=== PATIENT | female | born 1955 | race Caucasian/White ===

== ENCOUNTER 2019-01-08 01:00 | Inpatient (IN) ==
[2018-12-29 15:43] LABS: BASO# 0.09 X1000 (0.0-0.2); EOS# 0.19 X1000 (0.0-0.7); EOS% 2.2 % (0.0-10.0); HEMATOCRIT 39.8 % (37.0-47.0); HEMOGLOBIN 12.6 g/dL (12.0-16.0); IMM GRAN# 0.03 X1000 (0.0-0.04); IMM GRAN% 0.3 % (0.0-0.5); LYMPH# 3.28 X1000 (1.2-3.4); LYMPH% 37.2 % (20.5-51.1); MCH 30.4 PG (27-31); MCHC 31.7 g/dL (33-37); MCV 96.1 FL (81-99); MONO# 0.77 X1000 (0.11-0.59); MONO% 8.7 % (1.7-9.3); MPV 11.2 FL (7.4-10.4); NEUT# 4.45 X1000 (1.4-6.5); NEUT% 50.6 % (42.2-75.2); PLT 284 X1000 (130-400); RBC 4.14 XMIL (4.2-5.4); WBC 8.81 X1000 (4.8-10.8)
--- NOTE | 2018-12-29 15:50 | EKG Report ---
Test Performed on : 12/29/2018 3:25:39 PM Test Reason : PAT Blood Pressure : / mmHG Vent. Rate : 073 BPM Atrial Rate : 073 BPM P-R Int : 118 ms QRS Dur : 170 ms QT Int : 444 ms P-R-T Axes : 067 -65 098 degrees QTc Int : 489 ms Suspect unspecified pacemaker failure Atrial-sensed ventricular-paced rhythm Abnormal ECG No previous ECGs available Confirmed by Delmy CAZARES, Flakito ([id number]) on 12/29/2018 5:32:28 PM
[2018-12-29 15:58] LABS: AGAP 11; BUN 27 mg/dL (8-22); CALCIUM 10.9 mg/dL (8.8-10.2); CHLORIDE 102 mmol/L (98-107); COSMO 287; CREATININE 1.6 mg/dL (0.5-0.9); GLUCOSE 112 mg/dL (70-104); POTASSIUM 4.4 mmol/L (3.5-5.1); SODIUM 141 mmol/L (136-145); TCO2 28 mmol/L (25-35)
[2019-01-08] MEDS ORDERED: LR 500 ML ONE (05:41)
[2019-01-08] MEDS ORDERED: KEFZOL 2 GM/D5W 2 GM/50 ML IVPB ONE (05:42)
[2019-01-08] MEDS ORDERED: FENTANYL ONE ×2 (06:22→09:40)
[2019-01-08] MEDS ORDERED: XYLOCAINE-MPF 2% ONE (06:22)
[2019-01-08] MEDS ORDERED: VERSED ONE (06:22)
[2019-01-08] MEDS ORDERED: DIPRIVAN 1% ONE (06:22)
[2019-01-08] MEDS ORDERED: QUELICIN (DOSE) ONE (06:42)
[2019-01-08] MEDS ORDERED: ZOFRAN ONE (07:47)
[2019-01-08] MEDS ORDERED: DECADRON ONE (07:47)
[2019-01-08] MEDS ORDERED: OFIRMEV 1000 MG/ISOTONIC SOLN 1,000 MG/100 ML BOTTLE ONE (08:29)
[2019-01-08] MEDS ORDERED: EPHEDRINE ONE (09:06)
[2019-01-08] MEDS ORDERED: ROBINUL ONE (09:29)
[2019-01-08] MEDS ORDERED: NEOSTIGMINE ONE (09:29)
[2019-01-08] MEDS ORDERED: DILAUDID IV PRN (09:50)
[2019-01-08] MEDS: DILAUDID ONE ×2 (10:08→10:18)
--- NOTE | 2019-01-08 10:20 | OPERATIVE NOTE ---
PROCEDURE DATE: 01/08/2019 PREOPERATIVE DIAGNOSES: 1. Left calcaneal fracture. 2. Left Charcot hindfoot with subtalar collapse. POSTOPERATIVE DIAGNOSES: 1. Left calcaneal fracture. 2. Left Charcot hindfoot with subtalar collapse. PROCEDURES: 1. Left bone graft major from the femur. 2. Left open reduction and internal fixation calcaneus. 3. Left distraction subtalar fusion. SURGEON: Dr. Jc Olvera. INDUSTRIAL MACHINE OPERATOR: JENNIFER Marques, who was an integral part of the case, helping with all aspects of the case, and helping to increase our OR efficiency greatly. ANESTHESIA: General with LMA. TOURNIQUET TIME: Just over an hour. ESTIMATED BLOOD LOSS: 100 mL. IMPLANTS: 1. [employer] tricortical allograft wedge. 2. [employer] fully threaded headless screws. DISPOSITION: To PACU hemodynamically stable. INDICATION FOR PROCEDURES: Ms. Martinez is a 63-year-old female who suffered a calcaneus fracture. Unfortunately, it went onto a lot of collapse and the talus was almost sitting at the inferior border of the calcaneus. She was gapping at the TN joint as well so I discussed with her about surgical intervention. She expressed understanding, and wished to proceed. DESCRIPTION OF PROCEDURE: Ms. Martinez was identified in the preoperative holding area. The left foot was marked as correct surgical site. She was then wheeled to the operating room, and placed supine on the operating table. All bony prominences were well padded. She was induced under general anesthesia. LMA was placed. The left lower extremity then prepped with chlorhexidine, gluconate scrub and then ChloraPrep, and draped in normal sterile fashion. Surgical pause was performed. We identified the correct patient, correct side, and the correct procedure. Preop antibiotics were given. I made an incision just proximal to the greater trochanter. Dissection was carried down. I got my guidewire in good position. Her body habitus was such that it was difficult to get that starting position, but we were actually able to have really good position. I then used the over drill over that proximal femur. Once I guided it, then I passed a ball- tipped guidewire down to the knee. After that was confirmed to be in bone, we then used the [employer] TREVOR system, I got it in and then reamed the femoral canal. We got about 40 mL of graft. I then removed a ball-tip guidewire. I closed that in layered fashion, 0 Vicryl for the deep layer, 2-0 Vicryl for the subcutaneous, and kevin on the skin. After this, we used a sterile tourniquet. Esmarch was used to exsanguinate the left lower extremity and tourniquet inflated to 300 mmHg. I then made more of a vertical type incision over the sinus tarsi area. Dissection was carried down. We identified our peroneal tendons, and protecting them throughout the case. I opened up the subtalar joint. She had a lot of collapse of that calcaneus. There was a huge space there. I ended up cleaning out a lot of the bone and fibrous tissue that was there using a curette and rongeurs. I then denuded all of the cartilage that was left off the talus and the calcaneus using the osteotome, rongeur and curette. I then drilled the under surface of the talus, and drilled the intermediary fragment which was the posterior facet of the calcaneus. Then, I drilled the bottom of that piece and the calcar tuberosity. Once I felt that everything was prepared very well, I then used a tricortical iliac crest graft. We soaked it in the bone graft for awhile so that it could soak up a lot of the growth factors. I then covered it with some of the bone graft. I then wedged it in there. That actually restored our height, actually really well. I then packed the bone graft all around that whole area. I packed it in really well. Lateral fluoroscopic imaging showed that we had the height of the talus back to the top of the calcaneus as evidenced by looking at the posterior aspect of the calcaneus. Our TN joint really was not gapping anymore at this point. I then put 2 guidewires up off axis, and then passed the fully threaded screw up to hold everything in place. Putting the screws up, completed our ORIF of the calcaneus, and restored our fairly normal-appearing anatomy. Also, I went across the subtalar joint and fused it in with all of our bone graft. Fluoroscopic imaging showed that we had good position of our screws both lateral, AP and Kumar heel views. We then closed everything in layered fashion, 0 Vicryl for the deep layer, 2-0 Vicryl for the subcutaneous and nylon on the skin. Adaptic, 4x4s, ABD, soft roll, and posterior splint was applied. Tourniquet was let down. Patient had good capillary refill return to the toes. She was then wheeled from general anesthesia, moved to her own bed and taken to the PACU in stable condition. PLAN: Postoperative Diagnosis, she will be nonweightbearing left lower extremity. She will be admitted to the hospital. I will see her in the morning. cc: Jc Olvera MD MTDD
[2019-01-08 11:20] LABS: BASO# 0.04 X1000 (0.0-0.2); BASO% 0.4 % (0.0-0.8); EOS# 0.06 X1000 (0.0-0.7); EOS% 0.6 % (0.0-10.0); HEMATOCRIT 38.2 % (37.0-47.0); HEMOGLOBIN 12.4 g/dL (12.0-16.0); LYMPH# 1.36 X1000 (1.2-3.4); LYMPH% 14.7 % (20.5-51.1); MCH 31.4 PG (27-31); MCHC 32.5 g/dL (33-37); MCV 96.7 FL (81-99); MONO# 0.27 X1000 (0.11-0.59); MONO% 2.9 % (1.7-9.3); MPV 11.5 FL (7.4-10.4); NEUT# 7.55 X1000 (1.4-6.5); NEUT% 81.4 % (42.2-75.2); PLT 190 X1000 (130-400); RBC 3.95 XMIL (4.2-5.4); RDW 14.5 % (11.5-14.5); WBC 9.28 X1000 (4.8-10.8)
[2019-01-08 11:39] LABS: HEMOGLOBIN A1C 6.1 % (4.8-6.0)
[2019-01-08 11:41] LABS: CALCIUM 9.4 mg/dL (8.8-10.2); CREATININE 1.7 mg/dL (0.5-0.9); POTASSIUM 4.6 mmol/L (3.5-5.1)
[2019-01-08] MEDS: OXY IR PO PRN ×4 (11:44→23:10)
[2019-01-08] MEDS ORDERED: KEFZOL 1 GM/D5W 1 GM/50 ML IVPB IV SCH (15:30)
[2019-01-08] MEDS: KEFZOL 1 GM/D5W 1 GM/50 ML IVPB IV SCH (16:47)
[2019-01-08] MEDS ORDERED: SENOKOT PO PRN (16:55)
[2019-01-08] MEDS ORDERED: NON-FORMULARY MED (Dulaglutide [Trulicity] 0.75 MG) SQ SCH (17:00)
[2019-01-08] MEDS ORDERED: ZOFRAN IV PRN ×2 (17:15→18:15)
[2019-01-08] MEDS ORDERED: MORPHINE IV PRN (17:15)
[2019-01-08] MEDS ORDERED: OXY IR PO PRN (17:15)
[2019-01-08] MEDS ORDERED: TOFACITINIB CITRATE 11 MG PO SCH (21:00)
[2019-01-08] MEDS ORDERED: INSULIN PEN NEEDLES ONE (22:56)
[2019-01-08] MEDS: PERIDEX MT SCH (23:07)
[2019-01-08] MEDS: ZYLOPRIM PO SCH (23:08)
[2019-01-08] MEDS: TYLENOL ARTHRITIS PO SCH (23:08)
[2019-01-08] MEDS: COLACE PO SCH (23:09)
[2019-01-08] MEDS: KLOR-CON PO SCH (23:09)
[2019-01-08] MEDS: LOPRESSOR PO SCH (23:10)
[2019-01-08] MEDS: TRESIBA FLEXTOUCH U-100 SUBQ SCH (23:13)
[2019-01-09] MEDS: KEFZOL 1 GM/D5W 1 GM/50 ML IVPB IV SCH ×2 (00:50→09:33)
[2019-01-09] MEDS: TRESIBA FLEXTOUCH U-100 SUBQ SCH ×2 (01:04→22:53)
[2019-01-09] MEDS: OXY IR PO PRN ×5 (03:42→22:51)
[2019-01-09] MEDS: LOVENOX SUBQ SCH ×2 (04:58→09:37)
[2019-01-09] MEDS ORDERED: [UNRECOGNIZED DRUG - OTHER] PO SCH (09:00)
--- NOTE | 2019-01-09 09:10 | PROGRESS NOTE ---
DATE: 01/09/2019 SUBJECTIVE: Ms. Martinez is sitting on the bedside today. Actually she is feeling pretty well overall. OBJECTIVE: Left lower extremity exam, splint is clean, dry, and intact. She is moving her toes well. She has good capillary refill to all the toes. Hip dressing is clean, dry, and intact. ASSESSMENT: Status post left hindfoot Charcot reconstruction with distraction, subtalar fusion and bone graft from the femur. PLAN: Ms. Martinez is strict nonweightbearing to the left lower extremity. I did go over that with her. I think everything is actually looking really good. She is going to be in house over the weekend. We will plan on rehab hopefully on Saturday. [employer] is already getting started on everything, and we will follow her through the weekend. cc: Jc Olvera MD
[2019-01-09] MEDS: ZYRTEC PO SCH (09:33)
[2019-01-09] MEDS: DEMADEX PO SCH (09:33)
[2019-01-09] MEDS: ZYLOPRIM PO SCH ×2 (09:34→22:55)
[2019-01-09] MEDS: KLOR-CON PO SCH ×2 (09:34→22:54)
[2019-01-09] MEDS: CENTRUM SILVER PO SCH (09:35)
[2019-01-09] MEDS: ASPIRIN PO SCH (09:35)
[2019-01-09] MEDS: VITAMIN D PO SCH (09:35)
[2019-01-09] MEDS: COLACE PO SCH ×2 (09:35→22:54)
[2019-01-09] MEDS: PERIDEX MT SCH ×2 (09:36→22:54)
[2019-01-09] MEDS: TYLENOL ARTHRITIS PO SCH ×2 (09:36→22:53)
[2019-01-09] MEDS: LOPRESSOR PO SCH (22:55)
[2019-01-09] MEDS: LYRICA PO SCH (22:59)
[2019-01-10] MEDS: OXY IR PO PRN ×4 (05:06→16:12)
[2019-01-10] MEDS: LOVENOX SUBQ SCH (05:06)
[2019-01-10] MEDS: ZYLOPRIM PO SCH ×2 (08:37→21:20)
[2019-01-10] MEDS: COLACE PO SCH ×2 (08:37→21:19)
[2019-01-10] MEDS: PERIDEX MT SCH ×2 (08:37→21:19)
[2019-01-10] MEDS: KLOR-CON PO SCH ×2 (08:37→21:22)
[2019-01-10] MEDS: ZYRTEC PO SCH (08:38)
[2019-01-10] MEDS: ASPIRIN PO SCH (08:38)
[2019-01-10] MEDS: VITAMIN D PO SCH (08:38)
[2019-01-10] MEDS: CENTRUM SILVER PO SCH (08:38)
[2019-01-10] MEDS: TYLENOL ARTHRITIS PO SCH ×2 (08:38→21:19)
[2019-01-10] MEDS: DEMADEX PO SCH (08:38)
--- NOTE | 2019-01-10 10:54 | PROGRESS NOTE ---
DATE: 01/10/2019 SUBJECTIVE: Khushi Martinez is a 63-year-old female, who underwent a subtalar fusion by Dr. Olvera on . She has no new complaints. OBJECTIVE: General: She is a well-developed, well-nourished female. She is alert and oriented, cooperative exam. She is in no acute distress. Vital signs: Stable. She is afebrile. Her white count was normal on the . Her blood sugars have been running a little over 200. Extremities: Examination of her left hip from the bone graft shows that the wound is healing well. There is no sign of infection. She will stay in her cast. She can flex and extend her toes and has intact sensation to light touch and brisk capillary refill. Her cast is in good repair. IMPRESSION: Left subtalar hip fusion by Dr. Olvera. PLAN: We will have them change the dressing on her hip wound. I have removed it and they can place a new one. We will continue to elevate her ankle, change her dressing on her hip, and she will likely go to rehab on Saturday. cc: MD Jc Mullen MD
[2019-01-10] MEDS: LYRICA PO SCH (21:19)
[2019-01-10] MEDS: TRESIBA FLEXTOUCH U-100 SUBQ SCH (21:21)
[2019-01-10] MEDS: LOPRESSOR PO SCH (21:27)
[2019-01-11] MEDS: LOVENOX SUBQ SCH (06:09)
--- NOTE | 2019-01-11 07:53 | PROGRESS NOTE ---
DATE: 01/11/2019 SUBJECTIVE: Jessi Martinez is a 63-year-old female status post a left subtalar fusion by Dr. Olvera. She is awaiting rehab tomorrow. She has no complaints. OBJECTIVE: She is a well-developed, well-nourished female. She is alert and cooperative with the exam. Her cast is intact. Her foot is neurovascularly intact grossly. She has acceptable capillary refill, and can flex and extend her toes. ASSESSMENT: Stable left subtalar fusion. PLAN: She is planning to go to rehab tomorrow. Dr. Olvera will return tomorrow to follow her. cc: MD Jc Mullen MD
[2019-01-11] MEDS ORDERED: NON-FORMULARY MED (Dulaglutide [Trulicity] 0 MG) SUBQ SCH (09:00)
[2019-01-11] MEDS ORDERED: TRULICITY 1.5 MG SQ SCH (09:00)
[2019-01-11] MEDS: KLOR-CON PO SCH ×2 (10:37→21:51)
[2019-01-11] MEDS: ZYRTEC PO SCH (10:38)
[2019-01-11] MEDS: TYLENOL ARTHRITIS PO SCH ×2 (10:38→21:39)
[2019-01-11] MEDS: ASPIRIN PO SCH (10:39)
[2019-01-11] MEDS: OXY IR PO PRN ×3 (10:39→21:42)
[2019-01-11] MEDS: COLACE PO SCH ×2 (10:39→21:41)
[2019-01-11] MEDS: CENTRUM SILVER PO SCH (10:40)
[2019-01-11] MEDS: ZYLOPRIM PO SCH ×2 (10:40→21:41)
[2019-01-11] MEDS: DEMADEX PO SCH (10:41)
[2019-01-11] MEDS: PERIDEX MT SCH ×2 (10:41→21:34)
[2019-01-11] MEDS: VITAMIN D PO SCH (10:41)
[2019-01-11] MEDS: LYRICA PO SCH (21:40)
[2019-01-11] MEDS: TRESIBA FLEXTOUCH U-100 SUBQ SCH (21:43)
[2019-01-11] MEDS: LOPRESSOR PO SCH (21:52)
[2019-01-12] MEDS: LOVENOX SUBQ SCH (06:33)
--- NOTE | 2019-01-12 08:10 | ORTHOPAEDICS PROGRESS NOTE ---
DATE: 01/12/2019 SUBJECTIVE: Ms. Martinez is doing well this morning. Overall feeling really well. Not really complaining of a lot of pain in the left lower extremity. She is getting a little bit of pain in the right side. OBJECTIVE: On left lower extremity exam, her splint is clean, dry, and intact. She can dorsiflex and plantar flex her toes very well. She has decreased sensation to the toes but good capillary refill to all the toes. ASSESSMENT: Status post left subtalar fusion and calcaneus open reduction and internal fixation. PLAN: Ms. Martinez will be discharged to rehab today. She is still nonweightbearing to the left lower extremity and I will see her in a week in clinic. cc: Jc Olvera MD MTDD
[2019-01-12] MEDS: ASPIRIN PO SCH (08:21)
[2019-01-12] MEDS: LYRICA PO SCH (08:21)
[2019-01-12] MEDS: CENTRUM SILVER PO SCH (08:21)
[2019-01-12] MEDS: COLACE PO SCH (08:21)
[2019-01-12] MEDS: VITAMIN D PO SCH (08:21)
[2019-01-12] MEDS: ZYLOPRIM PO SCH (08:21)
[2019-01-12] MEDS: KLOR-CON PO SCH (08:21)
[2019-01-12] MEDS: ZYRTEC PO SCH (08:21)
[2019-01-12] MEDS: DEMADEX PO SCH (08:21)
[2019-01-12] MEDS: PERIDEX MT SCH (08:22)
[2019-01-12] MEDS: OXY IR PO PRN ×2 (08:24→13:02)
--- NOTE | 2019-01-12 10:28 | DISCHARGE SUMMARY ---
ADMISSION DATE: 01/08/2019 DISCHARGE DATE: 01/12/2019 SURGERY: Left subtalar fusion and calcaneus open reduction and internal fixation on 01/08/2019. DISCHARGE MEDICATIONS: Percocet and Lovenox. DISPOSITION: To [facility]. HOSPITAL COURSE: Ms. Martinez is a 63-year-old female whom I have been following in the clinic for this severe calcaneus fracture and hindfoot Charcot. We did total contact casting and got her swelling down. Then she came in on 01/08/2019 and underwent ORIF of calcaneus and subtalar fusion. She was admitted to the hospital afterwards. She convalesced very well. She was up with therapy. public services librarian is working on getting her rehab placement and everything is ready for her today. She will remain nonweightbearing to the left lower extremity. She will be discharged to rehab today. She will follow up with me in 1 week in clinic. cc: Jc Olvera MD
[2019-01-12] MEDS: TYLENOL ARTHRITIS PO SCH (10:37)
[2019-01-12 11:01] VITALS: BP 113/60
== END 2019-01-12 13:06 | disposition swing bed (61) | DRG 498 ==
LOC: SURHOLD 01:00 → 4N 10:12
PROVIDERS: ADMIT Orthopaedic Surgery; ATTEND Orthopaedic Surgery
CPT/HCPCS: 76000; 80048; 82306; 82948; 83036; 85025; 93005; 93010; 94761; 94799; 97162; 97530; A9270; J0131; J0330; J0690; J1100; J1170; J1650; J2250; J2405; J3010; J7120; XXXXX

== ENCOUNTER 2019-06-11 03:09 | Inpatient (IN) ==
[2019-06-03 12:06] LABS: BASO# 0.08 X1000 (0.0-0.2); BASO% 1.1 % (0.0-0.8); EOS# 0.17 X1000 (0.0-0.7); EOS% 2.4 % (0.0-10.0); HEMATOCRIT 37.7 % (37.0-47.0); HEMOGLOBIN 11.9 g/dL (12.0-16.0); IMM GRAN# 0.02 X1000 (0.0-0.04); IMM GRAN% 0.3 % (0.0-0.5); LYMPH# 2.39 X1000 (1.2-3.4); LYMPH% 33.2 % (20.5-51.1); MCH 30.3 PG (27-31); MCHC 31.6 g/dL (33-37); MCV 95.9 FL (81-99); MONO# 0.59 X1000 (0.11-0.59); MONO% 8.2 % (1.7-9.3); MPV 11.3 FL (7.4-10.4); NEUT# 3.94 X1000 (1.4-6.5); NEUT% 54.8 % (42.2-75.2); PLT 242 X1000 (130-400); RBC 3.93 XMIL (4.2-5.4); RDW 14.2 % (11.5-14.5); WBC 7.19 X1000 (4.8-10.8)
[2019-06-03 12:19] LABS: CALCIUM 9.7 mg/dL (8.8-10.2); POTASSIUM 4.3 mmol/L (3.5-5.1)
[2019-06-11] MEDS ORDERED: PEPCID ONE (07:44)
[2019-06-11] MEDS ORDERED: LR 500 ML ONE (07:44)
[2019-06-11] MEDS ORDERED: KEFZOL 1 GM/D5W 2 GM/100 ML IVPB ONE (07:44)
[2019-06-11] MEDS ORDERED: DIPRIVAN 1% ONE (09:27)
[2019-06-11] MEDS ORDERED: XYLOCAINE 1% ONE (10:31)
[2019-06-11] MEDS ORDERED: MARCAINE 0.5% PF ONE (10:31)
[2019-06-11] MEDS ORDERED: VERSED ONE (10:31)
[2019-06-11] MEDS ORDERED: KEFZOL 1 GM/D5W 1 GM/50 ML IVPB ONE (10:38)
[2019-06-11] MEDS ORDERED: OFIRMEV 1000 MG/ISOTONIC SOLN 1,000 MG/100 ML BOTTLE ONE (11:44)
[2019-06-11] MEDS ORDERED: DECADRON ONE (11:44)
[2019-06-11] MEDS ORDERED: ZOFRAN ONE (11:44)
[2019-06-11] MEDS ORDERED: ZOFRAN IV PRN (12:39)
[2019-06-11] MEDS ORDERED: DILAUDID ONE (12:44)
[2019-06-11] MEDS: DILAUDID ONE (13:24)
[2019-06-11] MEDS: OXY IR PO PRN ×3 (14:14→23:16)
[2019-06-11] MEDS: KEFZOL 1 GM/D5W 1 GM/50 ML IVPB IV SCH (18:30)
[2019-06-11] MEDS ORDERED: SENNOSIDES 25 MG PO PRN (18:51)
--- NOTE | 2019-06-11 19:55 | OPERATIVE NOTE ---
PROCEDURE DATE: 06/11/2019 PREOPERATIVE DIAGNOSIS: Left Charcot midfoot with instability. POSTOPERATIVE DIAGNOSIS: Left Charcot midfoot with instability. PROCEDURE: Left multiple midfoot fusion. SURGEON: Jc Olvera MD LABOR RELATIONS ANALYST: JENNIFER Marques, who was an integral part of the case helping with all aspects of the case, helping to increase our OR efficiency greatly. ANESTHESIA: General with LMA. TOURNIQUET TIME: Less than 2 hours. IMPLANTS: Right medical bolts x2 and a cannulated screw. DISPOSITION: To PACU, hemodynamically stable. INDICATION FOR PROCEDURE: Ms. Martinez is a 63-year-old female who originally I saw for a calcaneal fracture that had flattened out. We did the distraction subtalar fusion, and she actually healed really well. Unfortunately, the midfoot became unstable, and it has been giving her a lot of problems here recently so I discussed with her about operative intervention. She expressed understanding and wished to proceed. PROCEDURE: Ms. Martinez was identified in the preoperative holding area. The left foot was marked as correct surgical site. She was then wheeled to the operating room, placed supine on the operating table. All bony prominences were well padded. She was induced under general anesthesia. LMA was placed. Tourniquet was placed to the left thigh. Left lower extremity was then prepped with chlorhexidine, gluconate scrub and then ChloraPrep, draped in normal sterile fashion. Surgical pause was performed. We identified the correct patient, correct side, and the correct procedure. Preoperative antibiotics were given. Esmarch was used to exsanguinate the left lower extremity, and tourniquet was inflated to 300 mmHg. I started with a medial incision over the mid foot. Dissection was carried down. I exposed the talonavicular joint, the navicular cuneiform joint and the first tarsometatarsal joint. We did not take down the tibialis anterior. We left it intact and worked around it. Once I had gotten some exposure, I was then able to use a Hintermann distractor and opened up the talonavicular joint. We denuded all the cartilage that was there, and that hard sclerotic bone we excised that as well so we had nice raw bleeding bone edges that apposed each other on both sides. I then fenestrated with an osteotome and used a drill to prepare the joint as well. We then went to the navicular cuneiform joint and did the same thing with Hintermann distractor. I denuded all the cartilage and then prepared it with osteotome and drilling, and we did the same thing to the first TMT joint as well as we had prepared all those joints that would be involved in the fusion except for the second TMT joint. At this point, I reduced her instability deformity and pinned it temporarily. Fluoroscopic imaging showed that we had good position in. I then made an incision over the first toe MTP joint. Dissection was carried down through the capsule to expose that metatarsal head. I then put my guidewire up the metatarsal head all the way into the talus, drilled and then put a 6.5 bolt up that medial column and that actually held things together very well. We had very good compression of that medial column. I then did the same thing on the second toe. We put a bolt up it as well all the way into the talus. It gave me an excellent stability across the midfoot. To reinforce that, I then drove a guidewire from the base of the cuboid into really the base of the third and fourth metatarsal into the cuboid and into the calcaneus. I then put a 6.5 cannulated screw there, and that held things together very well also. At this point, final images were taken, which showed that we had an arch again. Everything was nice and compressed. Everything looked nice and stable as well. Her ankle joint still looked really good. We then closed everything in a layered fashion with 0 Vicryl for the deep layer, 2-0 Vicryl for the subcutaneous and nylon on the skin. Adaptic, 4x4s, ABD, Sof-Rol and posterior splint was applied. Tourniquet was let down. The patient had good cap refill return to the toes. She was then awakened from general anesthesia, moved to her own bed and taken to PACU in stable condition. POSTOPERATIVE PLAN: She will be admitted and will plan on rehab. Insurance Underwriter Sales to be involved. cc: Jc Olvera MD
[2019-06-11] MEDS ORDERED: PERCOCET-5 PO PRN (20:02)
[2019-06-11] MEDS ORDERED: TOFACITINIB CITRATE 5 MG PO SCH (21:00)
[2019-06-11] MEDS ORDERED: INSULIN PEN NEEDLES ONE (22:26)
[2019-06-11] MEDS: COLACE PO SCH (22:33)
[2019-06-11] MEDS: LYRICA PO SCH (22:33)
[2019-06-11] MEDS: ZYLOPRIM PO SCH (22:34)
[2019-06-11] MEDS: LOPRESSOR PO SCH (22:34)
[2019-06-11] MEDS: PERIDEX MT SCH (22:35)
[2019-06-11] MEDS: TRESIBA FLEXTOUCH U-100 SUBQ SCH (22:35)
[2019-06-12] MEDS: KEFZOL 1 GM/D5W 1 GM/50 ML IVPB IV SCH ×2 (03:13→10:50)
[2019-06-12] MEDS: LOVENOX SUBQ SCH (06:00)
[2019-06-12 07:09] LABS: CALCIUM 9.5 mg/dL (8.8-10.2); POTASSIUM 4.3 mmol/L (3.5-5.1)
[2019-06-12] MEDS: OXY IR PO PRN ×3 (07:44→21:07)
[2019-06-12] MEDS: DILAUDID ONE (08:19)
[2019-06-12] MEDS: ASPIRIN PO SCH (10:50)
[2019-06-12] MEDS: ZYRTEC PO SCH (10:50)
[2019-06-12] MEDS: PATIENT'S OWN MED PO SCH ×2 (10:51→10:52)
[2019-06-12] MEDS: ZYLOPRIM PO SCH ×2 (10:51→21:06)
[2019-06-12] MEDS: VITAMIN D PO SCH (10:51)
[2019-06-12] MEDS: PERIDEX MT SCH ×2 (10:51→21:08)
[2019-06-12] MEDS: COLACE PO SCH ×2 (10:52→21:06)
[2019-06-12] MEDS: KLOR-CON PO SCH (10:53)
[2019-06-12] MEDS: DEMADEX PO SCH (10:53)
--- NOTE | 2019-06-12 12:26 | ORTHOPAEDICS PROGRESS NOTE ---
DATE: 06/12/2019 SUBJECTIVE: Ms. Martinez is apple in bed this morning with her CPAP on. Overall pain is controlled this morning, but she did have some pain issues yesterday. OBJECTIVE: Extremity: Left lower extremity exam, splint is clean, dry, and intact. She has good capillary refill to all the toes and decreased sensation in all the toes, which was her baseline preoperatively. ASSESSMENT: Status post left midfoot Charcot reconstruction. PLAN: Ms. Martinez is nonweightbearing to left lower extremity. She is here for pain control, and then we are setting everything up for rehab for her hopefully Saturday or Saturday. cc: Jc Olvera MD
--- NOTE | 2019-06-12 13:21 | Diag Imaging Result Doc PS360 ---
EXAM: CHEST-1 VIEW 06/12/2019 HISTORY: rehab TECHNIQUE: AP portable upright at 1312 COMMENT: There is a pacemaker obscuring portions of the left lung. There are epicardial and transvenous leads. There is no evidence of acute pulmonary disease. There are no previous studies. The heart size is slightly enlarged. IMPRESSION: Borderline cardiomegaly. Electronically signed by Stalin Chapman 06/12/2019 1:19 PM
[2019-06-12] MEDS: LOPRESSOR PO SCH (21:05)
[2019-06-12] MEDS: LYRICA PO SCH (21:13)
[2019-06-12] MEDS: TRESIBA FLEXTOUCH U-100 SUBQ SCH (21:14)
[2019-06-13] MEDS: OXY IR PO PRN ×4 (02:30→21:35)
[2019-06-13] MEDS: LOVENOX SUBQ SCH (06:37)
[2019-06-13 08:23] LABS: CREATININE 1.1 mg/dL (0.5-0.9)
[2019-06-13] MEDS: ZYRTEC PO SCH (10:02)
[2019-06-13] MEDS: VITAMIN D PO SCH (10:02)
[2019-06-13] MEDS: ZYLOPRIM PO SCH ×2 (10:02→21:33)
[2019-06-13] MEDS: COLACE PO SCH ×2 (10:02→21:30)
[2019-06-13] MEDS: KLOR-CON PO SCH (10:03)
[2019-06-13] MEDS: ASPIRIN PO SCH (10:04)
[2019-06-13] MEDS: DEMADEX PO SCH (10:04)
[2019-06-13] MEDS: PATIENT'S OWN MED PO SCH ×2 (10:05)
[2019-06-13] MEDS: PERIDEX MT SCH ×2 (10:05→21:34)
--- NOTE | 2019-06-13 14:31 | ORTHOPAEDICS PROGRESS NOTE ---
DATE: 06/13/2019 SUBJECTIVE: No acute events overnight. Patient is doing well. Pain is controlled. She is tolerating diet. She is voiding voluntarily. She is ready to go to rehab bed on Saturday. OBJECTIVE: Creatinine is 1.1, sodium 134, potassium 4.0, last glucose 171.Extremity: Examination of left lower extremity reveals splint and surgical dressing to be clean, dry, intact. The patient has no feeling in her toes which is secondary to her neuropathy. Her calf is soft, compressible. ASSESSMENT: A 63-year-old female status post left midfoot Charcot reconstruction. Postoperative day 2. PLAN: 1. Patient is nonweightbearing left lower extremity. 2. Physical therapy to mobilize. 3. Ice left lower extremity p.r.n. 4. Aspirin and Lovenox DVT prophylaxis. DISPOSITION: Plan on discharging to inpatient rehab facility on Saturday when bed is available. cc: Jc Olvera MD
[2019-06-13] MEDS ORDERED: MILK OF MAGNESIA PO PRN (15:41)
[2019-06-13] MEDS: TRESIBA FLEXTOUCH U-100 SUBQ SCH (21:30)
[2019-06-13] MEDS: LOPRESSOR PO SCH (21:32)
[2019-06-13] MEDS: TYLENOL ARTHRITIS PO SCH (21:33)
[2019-06-13] MEDS: LYRICA PO SCH (21:34)
[2019-06-14] MEDS: LOVENOX SUBQ SCH (05:11)
[2019-06-14] MEDS: COLACE PO SCH ×2 (08:11→22:35)
[2019-06-14] MEDS: ASPIRIN PO SCH (08:11)
[2019-06-14] MEDS: ZYLOPRIM PO SCH ×2 (08:12→22:35)
[2019-06-14] MEDS: VITAMIN D PO SCH (08:12)
[2019-06-14] MEDS: PERIDEX MT SCH ×2 (08:12→22:36)
[2019-06-14] MEDS: ZYRTEC PO SCH (08:12)
[2019-06-14] MEDS: KLOR-CON PO SCH (08:12)
[2019-06-14] MEDS: DEMADEX PO SCH (08:13)
[2019-06-14] MEDS: PATIENT'S OWN MED PO SCH ×2 (08:19→08:21)
[2019-06-14] MEDS: TYLENOL ARTHRITIS PO SCH ×2 (08:22→22:41)
[2019-06-14] MEDS: OXY IR PO PRN ×3 (08:23→22:35)
--- NOTE | 2019-06-14 10:32 | ORTHOPAEDICS PROGRESS NOTE ---
DATE: 06/14/2019 SUBJECTIVE: No acute events overnight. The patient states she had some swelling in her right foot, and the VÍCTOR hose was placed on this. She is tolerating diet. She is voiding voluntarily. Pain controlled. OBJECTIVE: Vital signs: Afebrile. Vital signs stable. Extremities: Examination of the left lower extremity shows the splint to be clean, dry, intact. Brisk capillary refill in all toes. The foot is warm. Calf soft and compressible. ASSESSMENT: A 63-year-old female status post left midfoot fusion for Charcot arthropathy. Postop day 3. PLAN: 1. Patient is to continue nonweightbearing left lower extremity. 2. Physical Therapy to mobilize with assistive device. 3. Ice and elevate left lower extremity. I also recommended her to keep her right lower extremity elevated to help with swelling while she is in the bed. 4. Aspirin for DVT prophylaxis as well as the Lovenox. 5. Disposition. Plan on discharging the patient to a halfway facility or inpatient rehab tomorrow once a bed is available. She will follow up with Dr. Olvera at her scheduled postop appointment. cc: Jc Olvera MD
[2019-06-14] MEDS: TRESIBA FLEXTOUCH U-100 SUBQ SCH (22:36)
[2019-06-14] MEDS: LOPRESSOR PO SCH (22:37)
[2019-06-14] MEDS: LYRICA PO SCH (22:41)
[2019-06-15] MEDS: OXY IR PO PRN ×2 (05:53→11:38)
[2019-06-15] MEDS: LOVENOX SUBQ SCH (05:55)
[2019-06-15] MEDS: ZYRTEC PO SCH (08:10)
[2019-06-15] MEDS: ASPIRIN PO SCH (08:11)
[2019-06-15] MEDS: KLOR-CON PO SCH (08:11)
[2019-06-15] MEDS: DEMADEX PO SCH (08:11)
[2019-06-15] MEDS: ZYLOPRIM PO SCH (08:11)
[2019-06-15] MEDS: PERIDEX MT SCH (08:12)
[2019-06-15] MEDS: TYLENOL ARTHRITIS PO SCH (08:12)
[2019-06-15] MEDS: VITAMIN D PO SCH (08:12)
[2019-06-15] MEDS: COLACE PO SCH (08:12)
[2019-06-15] MEDS: PATIENT'S OWN MED PO SCH ×2 (09:00)
[2019-06-15 11:28] VITALS: BP 116/43
--- NOTE | 2019-06-15 11:50 | DISCHARGE SUMMARY ---
ADMISSION DATE: 06/11/2019 DISCHARGE DATE: 06/15/2019 ADMITTING DIAGNOSES: 1. Diabetes mellitus type 2 with peripheral neuropathy. 2. Left Charcot midfoot with instability. DISCHARGE DIAGNOSES: 1. Diabetes mellitus type 2 with peripheral neuropathy. 2. Left Charcot midfoot with instability. PROCEDURES: On 06/11/2019, Dr. Olvera performed a left multiple midfoot fusion. HOSPITAL COURSE: Ms. Martinez is a 63-year-old female, who Dr. Olvera has been following in clinic for quite some time following a calcaneal fracture. They originally did a distraction subtalar fusion, and she had been doing really well. Unfortunately, once she began weightbearing, the midfoot did become unstable. It has been giving her a lot of pain and swelling issues. After a lengthy discussion, it was decided to do a midfoot fusion. The risks were discussed, and the patient wished to proceed. She was taken to the operating room on 06/11/2019, and satisfactory anesthesia was obtained. She tolerated the procedure well, and was transferred to the recovery room. After satisfactory recovery, she was transferred to [address] [place] [address]. She has had a pretty uneventful postoperative course. She has had trouble mobilizing and working with Physical Therapy. We do think that a rehab stay would benefit her greatly. She has been getting up out of the bed. She has been nonweightbearing to this left lower extremity. She is in a surgical splint. Her blood sugars have been running greater than 150 the whole time she has been here, as high as 267. Her BUN and creatinine are 27 and 1.1. Her current vital signs shows temperature of 98.5 degrees, pulse 73, respirations 18, blood pressure 141/44, and she is 99% on 2 L nasal cannula. DISCHARGE MEDICATIONS: 1. We will resume her home medications. 2. Lovenox 40 mg subcutaneously daily x30 days. 3. Percocet 5 mg p.o. every 4 to 6 hours as needed for pain. DISCHARGE DISPOSITION: Ms. Martinez is being discharged to a rehab facility to continue to work on mobilization and physical therapy. She will still be nonweightbearing to this left lower extremity. She does need to work on mobilizing and transitioning without putting weight on the foot. We are going to see her in the clinic in 1 week. Will take down the surgical splint, and assess the site. We will plan to go into a hard cast at that point. She will be nonweightbearing for approximately 2 months. We are going to continue her on Lovenox while she is in the rehab to prevent DVTs. We will write her pain script of Percocet for pain control. If there are any questions or concerns, she is welcome to call the office. Dictated by JENNIFER Marques for Jc Olvera MD cc: JENNIFER Marques MD
[2019-06-17] MEDS ORDERED: NON-FORMULARY MED (Dulaglutide [Trulicity] 1.5 MG) SQ SCH (09:00)
== END 2019-06-15 12:46 | DRG 983 ==
LOC: SURHOLD 03:09 → 4N 13:52
PROVIDERS: ADMIT Orthopaedic Surgery; ATTEND Orthopaedic Surgery